=== PATIENT | female | born 1980 | race Caucasian/White ===

== ENCOUNTER 2022-07-11 08:48 | Emergency (ER) | payer OTHER, SELFPAY ==
[2022-07-11 08:54] VITALS: BP 128/72; PULSE 85; RESP 20; TEMP 36.8; O2SAT 100
--- NOTE | 2022-07-11 09:02 | ED.URI ---
HPI - URI/Sore Throat General Chief Complaint: Upper Respiratory Infection Stated Complaint: Sore Throat Time Seen by Provider: 07/11/22 09:03 History of Present Illness HPI Narrative: 42 y/o female presented for c/o sore, onset throat yesterday. Woke today with more pain with swallowing. Denies any additional symptoms. Taking ibuprofen. Endorses son diagnosed with impetigo and taking antibiotics. Related Data Allergies Allergy/AdvReac Type Severity Reaction Status Date / Time prednisone Allergy Severe Muscle Verified 07/11/22 09:04 Spasms Review of Systems Review of Systems: CONSTITUTIONAL: Denies body aches, fever, chills, or sweats. EYES: Denies visual changes, redness, or discharge. ENT: Denies rhinorrhea, congestion, or otalgia. CARDIOVASCULAR: Denies chest pain, palpitations, or edema. RESPIRATORY: Denies dyspnea. GASTROINTESTINAL: Denies abdominal pain, nausea, vomiting, or diarrhea. SKIN: Denies rash, itching, or wounds. MUSCULOSKELETAL: Denies back pain, joint pain, or myalgia. NEUROLOGIC: Denies headache Exam Narrative: GENERAL: Ill-appearing, nontoxic EYES: conjunctivae clear ENT: Mucous membranes moist. TM pearly shankar with normal light reflex bilaterally; no tragal tenderness. Oropharynx erythematous without lesions. Tonsils enlarged 3+ and erythematous without exudate. No drooling, no hoarseness, no trismus, uvula midline. No tripod positioning, hot potato voice, or soft palate swelling. NECK: Supple. No lymphadenopathy CHEST: Clear to auscultation, breath sounds equal. HEART: Regular rate and rhythm. No murmur heard. SKIN: Warm, dry, no rash. NEURO: Alert and oriented x3. Course Course Emergency Course: Patient is aware of diagnosis, understands and agrees to treatment plan. Anticipatory guidance given. Patient agrees to follow-up as directed and is aware of reasons to seek care at the emergency department. Portions of this record may have been created with voice recognition software Level of Care: Express Care Visit Vital Signs Vital signs: Vital Signs Temperature 98.2 F 07/11/22 08:54 Pulse Rate 85 07/11/22 08:54 Respiratory Rate 20 07/11/22 08:54 Blood Pressure 128/72 07/11/22 08:54 Pulse Oximetry 100 07/11/22 08:54 Oxygen Delivery Room Air 07/11/22 08:54 Temperature 98.2 F 07/11/22 08:54 Pulse Rate 85 07/11/22 08:54 Respiratory Rate 20 07/11/22 08:54 Blood Pressure 128/72 07/11/22 08:54 Pulse Oximetry 100 07/11/22 08:54 Oxygen Delivery Room Air 07/11/22 08:54 MDM - URI/Sore Throat MDM Narrative Medical decision making narrative: strep result reviewed with pt. Advise supportive treatments. Patient is appropriate for outpatient treatment and follow-up. Differential Diagnosis Differential diagnosis: Likely upper respiratory infection, viral infection and pharyngitis Lab Data Labs: Strep Screen Positive Group A Strep *(Reference Range: Negative)* Discharge Plan Discharge Clinical Impression: Strep pharyngitis Patient Disposition: Home, Self-Care Condition: Stable Instructions: Antibiotic Form, Strep Throat (ED) Additional Instructions: - Take the antibiotic as directed. Fever and sore throat typically resolve within one to three days. - Most patients can return to work after 24 hours of antibiotic therapy, provided you are fever free and otherwise well. -Eat and drink things that are easy to swallow, like soft foods, cool liquids, tea with honey, or popsicles . -Salt water gargles and/or may use topical anesthetic ( Chloraseptic spray) or lozenges to relieve dryness or throat pain -Alternate Tylenol and ibuprofen as needed for pain and fever as directed. -Frequent hand washing or hand lumber inspector is one of the best ways to prevent spread of infection. Throw away the toothbrush after 24hours of antibiotic. -Follow up with primary care provider in 2-3 d
== END 2022-07-11 09:16 | disposition home or self-care (01) ==
PROVIDERS: Emergency Provider Nurse Practitioner Family; PCP Nurse Practitioner Family
DX: J02.0 Streptococcal pharyngitis (principal)
CPT/HCPCS: 87880; 99203; G0463

== ENCOUNTER 2024-10-06 13:24 | Emergency (ER) | payer OTHER, SELFPAY ==
--- NOTE | ~2024-10-06 | XR_ITS ---
EXAMINATION: XR chest 2V 10/06/2024 14:39 INDICATION: Cough PROCEDURE: 2 view chest COMPARISON: No prior studies for comparison. FINDINGS: The lungs are clear. The cardiomediastinal silhouette is within normal limits. There are no pleural effusions. There is no pneumothorax suspected. IMPRESSION: 1: NO ACUTE CARDIOPULMONARY DISEASE. Reviewed, dictated and finalized at location B. NESS COORDINATOR
[2024-10-06 13:32] VITALS: BP 123/63; PULSE 92; RESP 20; TEMP 36.8; O2SAT 98
--- NOTE | 2024-10-06 14:18 | ED.URI ---
HPI - URI/Sore Throat General Chief Complaint: Upper Respiratory Infection Stated Complaint: Cough Time Seen by Provider: 10/06/24 14:19 Source: patient Mode of arrival: ambulatory Limitations: no limitations History of Present Illness HPI Narrative: 44-year-old female presented for complaint of a nonproductive cough for 10 days. She states the cough is worse when she is sitting. The only thing that improves it is chewing gum. It feels like a tickle down in her throat. She denies associated shortness of breath, wheezing, nausea, vomiting, diarrhea, fevers or chills. She states she had similar symptoms 10 years ago which required her to go to the emergency room, she attributes this to having taken Tessalon Perles prior to the ER visit. Also states she is allergic to prednisone. Related Data Allergies Allergy/AdvReac Type Severity Reaction Status Date / Time prednisone Allergy Severe Muscle Verified 10/06/24 13:36 Spasms Review of Systems Review of Systems: CONSTITUTIONAL: Denies body aches, fever, chills, or sweats. EYES: Denies visual changes, redness, or discharge. ENT: Denies rhinorrhea, congestion, sore throat, or otalgia. CARDIOVASCULAR: Denies chest pain, palpitations, or edema. RESPIRATORY: Reports cough, denies sob, wheezing. GASTROINTESTINAL: Denies abdominal pain, nausea, vomiting, or diarrhea. SKIN: Denies rash MUSCULOSKELETAL: Denies back pain, joint pain, or myalgia. NEUROLOGIC: Denies headache All systems reviewed & are unremarkable except as noted in HPI and below PMFSH Comments At time of signature, I have reviewed and agree with nursing past medical, surgical, social and family history unless otherwise noted. Please see nursing chart for further information. There is no relevant family history pertinent to the presenting complaint Exam Narrative: GENERAL: Well-appearing, in no acute distress. EYES: EOMI. No redness or drainage. Conjunctivae normal. ENT: Mucous membranes pink and moist. No rhinorrhea. TMs normal bilaterally. Throat normal. Uvula midline. NECK: Normal AROM. Supple. CHEST: No respiratory distress. lungs clear to all bhatia. HEART: Regular rate and rhythm. No murmur appreciated. ABDOMEN: Soft, nontender, nondistended, normal active bowel sounds. SKIN: Warm, dry, no rash. Capillary refill normal. Normal skin turgor. NEURO: Alert and oriented x3. Gait steady. PSYCH: Normal affect. Course Course Emergency Course: Patient is aware of diagnosis, understands and agrees to treatment plan. Anticipatory guidance given. Patient agrees to follow-up as directed and is aware of reasons to seek care at the emergency department. Portions of this record may have been created with voice recognition software Level of Care: Express Care Visit Vital Signs Vital signs: Vital Signs Temperature 98.3 F 10/06/24 13:32 Pulse Rate 92 10/06/24 13:32 Respiratory Rate 20 10/06/24 13:32 Blood Pressure 123/63 10/06/24 13:32 Pulse Oximetry 98 10/06/24 13:32 Oxygen Delivery Room Air 10/06/24 13:32 Temperature 98.3 F 10/06/24 13:32 Pulse Rate 92 10/06/24 13:32 Respiratory Rate 20 10/06/24 13:32 Blood Pressure 123/63 10/06/24 13:32 Pulse Oximetry 98 10/06/24 13:32 Oxygen Delivery Room Air 10/06/24 13:32 MDM - URI/Sore Throat MDM Narrative Medical decision making narrative: Discussed physical exam findings and preliminary CXR; pt will be notified if the radiologist differs. i Rx. Pt states the cough syrup helps. Cannot tolerate steroid or tessalon perles. Advised supportive measures and signs/symptoms to go to the ER. Pt is appropriate for outpt treatment and f/u. Differential Diagnosis Differential diagnosis: Likely upper respiratory infection, sinusitis, viral infection, bronchitis and other (bronchitis, asthma, GERD) Discharge Plan Discharge Clinical Impression: Bronchitis Patient Disposition: Home, Self-Care Condition: Stable Instructions: Antibiotic Form, Acute Bronchitis (ED) Additional Instructions: Take medication as directed Recommend Flonase spray and Zyrtec (or Claritin/Loly) Take Cough syrup as prescribed, it may cause drowsiness; avoid driving or take it at night time. Tylenol 1000mg every 8 hours as needed for pain Symptomatic treatment includes: rest, fluids, and increase humidity of the air at home. Follow up with your primary care provider as needed in 1 week Go to the ER for worsening symptoms or concerns Patient Language: Portuguese Prescriptions: New codeine-guaifenesin [Guaifenesin AC] 10-100 mg/5 mL liquid 10 ml PO Q8H PRN (Reason: cough) Qty: 120 0RF albuterol sulfate 90 mcg/actuation HFA aerosol inhaler 2 inh inhalation QID PRN (Reason: shortness of breath or wheezing) Qty: 8.5 0RF Follow-up/Referrals: Bhatia,Balbina Guzman APN [Primary Care Provider] - Time of Disposition: 14:58
== END 2024-10-06 15:02 | disposition home or self-care (01) ==
PROVIDERS: Emergency Provider Nurse Practitioner Family; PCP Nurse Practitioner Family
DX: J40 Bronchitis, not specified as acute or chronic (principal)
CPT/HCPCS: 71046; 99213; G0463

== ENCOUNTER 2025-07-22 12:15 | Emergency (ER) | payer OTHER, SELFPAY ==
[2025-07-22 12:19] VITALS: BP 137/88; PULSE 83; RESP 16; TEMP 36.5; O2SAT 99
--- OUTSIDE RECORDS SUMMARY | 2025-07-22 12:23 | XMS_ITS | Clinical Summary ---
Author Organization [facility] Address [address] [place] [address] Phone Care Team Providers Care Gandy Dancer Name Role Phone Unavailable Primary Care Provider Unavailabl e Allergies Active Allergy Reactions Criticality Noted Date Comments Prednisone Nausea and Vomiting Low 11/19/2007 Medications mv,Ca,min/iron/F A/guarana/caff (ONE-A-DAY WOMEN'S ACTIVE ORAL) Take by mouth. Active conjugated estrogens-medrox yPROGESTERone (Prempro) 0.45-1.5 mg Tablet Take 1 Tablet by mouth daily. 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, currently , antepartum-cleft palate 04/18/2018 Previous complicat ed by -induced hypertension, antepartum 04/18/2018 Family history of breast cancer 12/18/2017 ASCUS, neg HPV, repap in 1 year 12/10/2014 Resolved Problems Problem Noted Date Diagnosed Date Resolved Date AMA (advanced maternal age) multigravida 35+, first trimester 04/18/2018 06/15/2020 9/12, boy 07/02/2015 08/12/2015 Bilateral headache 06/14/2015 5 Acute upper respiratory infe ctions of unspecified site 11/19/2007 08/12/2015 Complete 05/07/2019 Encounters Date Type Department Care Team Description 05/26/2025 External Device Data [facility] ABSTRACTION Provider, Abstract 05/06/2025 External Device Data [facility] ABSTRACTION Provider, Abstract 05/05/2025 External Device Data [facility] ABSTRACTION Provider, Abstract from Last 3 Months Immunizations Immunization Administration Dates Next Due (ADACEL/BOOSTRIX)(10 YR UP) TDAP VACCINE, 0.5ML, IM 10/01/2019,04/26/2015 INFLUENZA VACCINE QUADRIVALENT 6 MOS UP PF IM Family History Medical History Relation Name Comments Diabetes Father Cancer Maternal Grandfather Prostat e Thyroid Disease Mother Breast Cancer Other p gr aunt distant patern al relatives Heart Disease Paternal Grandfather Cancer Paternal Grandmother Migraines Sister 2 Relation Name Status Comments Brother Alive Father Maternal Grandfather Alive Maternal Grandmother Alive Mother Alive Other p gr aunt Paternal Grandfather Paternal Grandmother Sister 1 Alive Sister 2 Social History Tobacco Use Types Packs/Day Years Used Date Smoking Tobacco: Former Cigarettes 0.3 15 0 10/29/1994 - 10/29/2009 Smokeless Tobacco: Never Tobacco Cessation:Counseling Given: Not Answered Comments:casual smoker less just a couple of cigarettes a day Alcohol Use Standard Drinks/Week Comments Not Currently 0 (1 standard drink = 0.6 oz pur e alcohol) Comments No Sex and Gender Information Value Date Recorded Sex Assigned at Not on file Legal Sex Female 4:05 AM WEB MASTER Gender Identity Not on file Sexual Orientation Not on file Occupation Industry Job Start Date Job End Date Not on file Not on file Not on file Not on file Last Filed Vital Signs Vital Sign Reading Time Taken Comments Blood Pressure 134/92 12/10/2023 3:01 PM WEB MASTER Pulse 79 12/05/2019 5:00 PM WEB MASTER Temperature 36.6 C (97.9 F) 12/07/2019 8:15 AM WEB MASTER Respiratory Rate 16 12/07/2019 8:15 AM WEB MASTER Oxygen Saturation 100% 12/05/2019 4:15 AM WEB MASTER Inhaled Oxygen Concentration - - Weight 107.5 kg (237 lb) 12/10/2023 3:01 PM WEB MASTER Height 160 cm (5' 3) 12/10/2023 3:01 PM WEB MASTER Body Mass Index 41.98 12/10/2023 3:01 PM WEB MASTER Plan of Treatment Health Maintenance Due Date Last Done Comments HEPATITIS B VACCINES (1 of 3 - 19+ 3-dose series) 2001 HPV VACCINES (1 - 3-dose SCD M series) 2009 Pre-Diabetes and Diabetes Screening 09/26/2022 09/26/2019, 09/26/2019, 09/26/2019, Additional history exists CERVICAL CANCER SCREENING 11/07/2024 PAP SMEAR 11/07/2024 11/07/2023, 08/02/2020, 01/02/2019, Additional history exists BREAST CANCER SCREENING 05/15/2025 05/15/2024, 12/20 INFLUENZA VACCINE (#1) 2025 07/22/2019 HPV/Cotest (21-29) 11/07/2028 11/07/2023, 0 06/15/2020, 01/02/2019, Additional history exists HPV/Cotest (30-65) 11/07/2028 11/07/2023, 0 06/15/2020, 01/02/2019, Additional history exists DTAP/TDAP/TD VACCINES (3 - T d or Tdap) 10/01/2029 10/01/2019, 04/26/2015 Procedures Procedure Name Priority Date/Time Associated Diagnosis Comments MAMMO 3D JAJA SCREEN BILAT W OR WO CAD Routine 05/15/2024 4:02 PM CDT Breast cancer screening by mammogram CERV/VAG CYTO SCREEN PAP W/HPV Routine 11/07/2023 2:38 PM WEB MASTER Well woman exam with routine gynecological exam Screening for cervical cancer Special screening examination for human papillomavirus (HPV) GLUCOSE TOLERANCE, FASTING Routine 09/26/2019 9:19 AM WEB MASTER Abnormal glucose tolerance test (GTT) during , antepartum from Last 3 Months or Most Recently Relevant to Health Maintenance Results * MAMMO 3D JAJA SCREEN BILAT W OR WO CAD (05/15/2024 4:02 PM CDT) Anatomical Region Laterality Modality Breast Bilateral Mammography 05/15/2024 4:03 PM CDT Impressions 05/16/2024 8:44 AM CDT IMPRESSION: No suspicious findings to suggest malignancy in either breast. Annual mammography is recommended. OVERALL FINAL ASSESSMENT: BI-RADS CATEGORY 1 - Negative. DICTATION LOCATION: [facility] Narrative 05/16/2024 8:44 AM CDT BILATERAL SCREENING DIGITAL MAMMOGRAM WITH 3D TOMOSYNTHESIS AND CAD DATE: 05/15/2024 4:02 PM HISTORY: Routine screening. TECHNIQUE: Full-field digital craniocaudal and mediolateral oblique projections of both breasts were obtained. Low-dose full-field digital breast tomosynthesis examination was performed with 2D and 3D acquisitions. Examination is read in conjunction with computer aided detection. COMPARISON: 12/20/2017 BREAST COMPOSITION: There are scattered areas of fibroglandular density. FINDINGS: No suspicious mass, suspicious microcalcifications, or architectural distortion is identified in either breast. Computer aided detection was used in the interpretation of this examination. Procedure Note Corinna Hensley MD - 05/16/2024 BILATERAL SCREENING DIGITAL MAMMOGRAM WITH 3D TOMOSYNTHESIS AND CAD DATE: 05/15/2024 4:02 PM HISTORY: Routine screening. TECHNIQUE: Full-field digital craniocaudal and mediolateral oblique projections of both breasts were obtained. Low-dose full-field digital breast tomosynthesis examination was performed with 2D and 3D acquisitions. Examination is read in conjunction with computer aided detection. COMPARISON: 12/20/2017 BREAST COMPOSITION: There are scattered areas of fibroglandular density. FINDINGS: No suspicious mass, suspicious microcalcifications, or architectural distortion is identified in either breast. Computer aided detection was used in the interpretation of this examination. IMPRESSION: No suspicious findings to suggest malignancy in either breast. Annual mammography is recommended. OVERALL FINAL ASSESSMENT: BI-RADS CATEGORY 1 - Negative. DICTATION LOCATION: [facility] Jaimie Santiago MD MAMMO ORDERABLES Final Re sult * (ABNORMAL) CERV/VAG CYTO SCREEN PAP W/HPV (11/07/2023 2:38 PM WEB MASTER) CLINICAL INFORMATION [facility] [place] Comment:None given LAST MENSTRUAL PERIOD [facility] [place] Comment:NONE GIVEN PREV PAP: [facility] [place] Comment:NIL 06/15/2020 PREV BX: [facility] [place] Comment:NONE GIVEN SOURCE [facility] Comment:Endocervix ADEQUACY: [facility] [place] Comment: Satisfactory for evaluation. Endocervical/transformation zone component present. GENERAL CATEGORIZATION: (A) [facility] [place] Comment:Cytology Results: Ep ithelial Cell Abnormality PAP INTERP (A) [facility] [place] Comment: Atypical Squamous Cells of Undetermined Significance (ASC-US) CYTOLOGY INFECTION [facility] [place] Comment: Shift in vaginal marybeth suggestive of bacterial vaginosis. COMMENT (PAP TEST) [facility] [place] Comment: This Pap test has been evaluated with computer assisted technology. Suggest clinical correlation and follow-up as clinically appropriate STEEL LAYOUT WORKER: Lyle zheng [employer] Communications[employer]ico [place] Comment: PCM, CT(ASCP) CT Screening Location: [facility] [address] [place] [address] PATHOLOGIST [facility] [place] Comment: Aman Vences M.D., Board Certified in Anatomic Pathology and Cytopathology. (electronic signature) EXPLANATORY NOTE [facility] Comment: EXPLANATORY NOTE: The Pap is a screening test for cervical cancer. It is not a diagnostic test and is subject to false negative and false positive results. It is most reliable when a satisfactory sample, regularly obtained, is submitted with relevant clinical findings and history, and when the Pap result is evaluated along with historic and current clinical information. HPV E6/E7 Not Detected Not Detected [facility] Comment: Methodology: Farm Management Agent-Mediated Amplification This assay detects E6/E7 viral messenger RNA (mRNA) from 14 high-risk HPV types (16,18,31,33,35,39,45,51,52,56,58,59,66,68). Cervical sources are required for HPV testing. If a vaginal source from a patient who has had a total hysterectomy with removal of cervix was submitted, please contact the testing laboratory for alternative testing options. For additional information, please refer to http://education.[employer]/faq/WXU162i8 (This link if provided for information/ educational purposes only.) Test Performed at: [facility] [address] [place] [address] Kelly Muniz MD Genital SWAB OF ENDOCERVIX / Unknown 11/07/2023 2:38 PM WEB MASTER 11/08/2023 12:03 AM WEB MASTER Jaimie Santiago MD PATHOLOGY/CYTOLOGY ORDERA BLES Final Result [facility] [phone] [facility] [address] [place] [address] * GLUCOSE TOLERANCE, FASTING (09/26/2019 9:19 AM WEB MASTER) GLUCOSE FASTING 80 74 - 99 mg/dL 09/26/2019 10:40 AM WEB MASTER [facility] Blood Venipuncture / Unknown 09/26/2019 9:19 AM WEB MASTER 09/26/2019 9:45 AM WEB MASTER Jaimie Santiago MD CHEMISTRY ORDERABLES [place] l Result Performing Organization Address City/[facility]/ZIP Co de Phone Number [facility] CLIA# [id number] [address] [place] [address] from Last 3 Months or Most Recently Relevant to [place] [address] RX [employer] RX Member Subscriber Plan / Payer (Ef fective for All Dates) Name:America Richardson Relation to Subscriber:Spouse Name:America Richardson Date of :1982 (Work) Payer ID:Not on file Type:RX LDI Address: [place]N [place] RX [employer] PLANS (INTERNAL) [facility] Internal Plans [employer] HMO Advance Directives For more information, please contact: [phone] * Full Code (Latest Code Status on File) Date Activated Date Inactivated Comments 12/05/2019 12:28 PM 12/07/2019 2:49 PM * Full Code Date Activated Date Inactivated Comments 12/04/2019 3:32 PM 12/05/2019 12:28 PM * Full Code Date Activated Date Inactivated Comments 04/29/2018 9:35 AM 04/29/2018 1:31 PM * Full Code Date Activated Date Inactivated Comments 07/03/2015 7:26 PM 07/05/2015 3:49 PM * Full Code Date Activated Date Inactivated Comments 07/02/2015 10:35 PM 07/03/2015 7:26 PM
--- OUTSIDE RECORDS SUMMARY | 2025-07-22 12:23 | XMS_ITS | Clinical Summary ---
Author Organization [facility] Address [address] [place] [address] Care Team Providers Care Dual Rate Dealer Name Role Phone Balbina Trujillo Eugenie BUCIO Primary Care Provider [phone] Allergies Active Allergy Reactions Criticality Noted Date Comments Prednisone Unknown 06/03/2018 Medications prenat vit 82-[id number]-om 3,6 35-5-1.2-400 mg capsule Take by mouth daily. Active naproxen (NAPROSYN) 500 mg tabletIndication s:Pain Take 1 tablet (500 mg total) by mouth 2 (two) times a day with meals. 20 tablet 06/03/2018 Active ibuprofen (ADVIL,MOTRIN) 800 mg tablet Take 1 tablet (800 mg total) by mouth every 8 (eight) hours as needed for pain for up to 30 doses 30 tablet 03/23/2023 Active Social History Tobacco Use Types Packs/Day Years Used Date Smoking Tobacco: Never Smokeless Tobacco: Never Personal Safety Answer Date Recorded Getting School Help Needed Not on file 05/01 Comments No Sex and Gender Information Value Date Recorded Sex Assigned at Not on file Legal Sex Female 1:19 PM PRODUCTION SCHEDULER Gender Identity Not on file Sexual Orientation Not on file Obstetrics History Last Filed Vital Signs Vital Sign Reading Time Taken Comments Blood Pressure 122/87 03/23/2023 10:58 PM CDT Pulse 77 03/23/2023 10:58 PM CDT Temperature 37.1 C (98.8 F) 03/23/2023 10:58 PM CDT Respiratory Rate 16 03/23/2023 10:58 PM CDT Oxygen Saturation 100% 03/23/2023 10:58 PM CDT Inhaled Oxygen Concentration - - Weight 99.8 kg (220 lb) 03/23/2023 4:39 PM CDT Height 160 cm (5' 3) 03/23/2023 4:39 PM CDT Body Mass Index 38.97 03/23/2023 4:39 PM CDT Plan of Treatment Health Maintenance Due Date Last Done Comments Breast Cancer Screening-Mammogram 1982 Cervical Cancer Screening 1982 Depression Screening 1982 Hepatitis C Screening 1982 Varicella Vaccines (1 of 2 - 13+ 2-dose series) 1995 Hepatitis B Screening 2000 Regular Well Visit/Exam 18-64 2000 HPV Vaccines (1 - 3-dose SCD M series) 2009 Covid-19 Vaccine (2 - 2024-2 6 season) 2025 12/26/2020 Influenza Vaccine (#1) 2025 07/22/2019 DTaP/Tdap/Td Vaccine (3 - Td or Tdap) 10/01/2029 10/01/2019, 04/26/2015 Pneumococcal vaccine <65 Aged Out No longer eligible based on patient's age to complete this topic Insurance [facility] [place] [address] [id number] [employer]OL[employer] Care Teams Dual Rate Dealer Relationship Specialty Start Date End Date Balbina Trujillo NP [address] [place] [address] PCP - General Nurse Practitioner 03/23/23
--- OUTSIDE RECORDS SUMMARY | 2025-07-22 12:23 | XMS_ITS | Encounter Summary ---
Author Organization [facility] Address [address] [place] [address] Care Team Providers Care Chief Innovation Officer Name Role Phone Unavailable Primary Care Provider Unavailabl e Encounter Details Date Type Department Care Team (Late st Contact Info) Description 11/19/2007 Outpatient Historical [facility] [address] [place] [address] Tereso Monzon MD [address] [facility] [address] [place] [address] Social History Tobacco Use Types Packs/Day Years Used Date Smoking Tobacco: Never Assessed Comments Unknown Sex and Gender Information Value Date Recorded Sex Assigned at Not on file Legal Sex Female 4:05 AM MANDARIN TEACHER Gender Identity Not on file Sexual Orientation Not on file documented as of this encounter Last Filed Vital Signs Vital Sign Reading Time Taken Comments Blood Pressure 112/80 11/19/2007 12:00 PM MANDARIN TEACHER Pulse - - Temperature 36.8 C (98.2 F) 11/19/2007 12:00 PM MANDARIN TEACHER Respiratory Rate - - Oxygen Saturation - - Inhaled Oxygen Concentration - - Weight 78.5 kg (173 lb) 11/19/2007 12:00 PM MANDARIN TEACHER Height - - Body Mass Index - - documented in this encounter Plan of Treatment Not on file documented as of this encounter Visit Diagnoses Not on filedocumented in this encounter
--- OUTSIDE RECORDS SUMMARY | 2025-07-22 12:23 | XMS_ITS | Encounter Summary ---
Author Organization [facility] Address [address] [place] [address] Care Team Providers Care Assistant Community Manager Name Role Phone Unavailable Primary Care Provider Unavailabl e Encounter Details Date Type Department Care Team (Late st Contact Info) Description 11/19/2007 Orders Only [facility] Family Medicine [address] [place] [address] Tereso Monzon MD [address] [facility] [address] [place] [address] Social History Tobacco Use Types Packs/Day Years Used Date Smoking Tobacco: Never Assessed Comments Unknown Sex and Gender Information Value Date Recorded Sex Assigned at Not on file 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 BLOOD PRESSURE: 112/80. Right Arm Sitting TEMPERATURE: 98.2??f. Oral ALLERGIES: Allergies are as listed. TOBACCO USE: Patient does not currently use tobacco. CHIEF COMPLAINT Patient complains of cough. HISTORY: has had respiratory illness since 10/29. cough, congestion. has been trying to see doctor who hasn't been able to see her. thought she was better, put on abx, decongestant, benzonatate. last pill this morning. was feeling a lot better. Not really had a fever, but was cold when she went to bed. but had a lot of sweats. ROS: GENERAL: FEELS FATIGUED, HAS CHILLS, OCCASIONALLY NOTES SPONTANEOUS SWEATS. ENT: See HISTORY OF PRESENT ILLNESS. CARDIAC: No chest pain, palpitations, orthopnea, dyspnea on exertion, or paroxysmal nocturnal dyspnea. RESPIRATORY: HAS A COUGH. Patient's history reviewed; no changes. PHYSICAL EXAMINATION: CONSTITUTIONAL: GENERAL APPEARANCE: Healthy appearing patient in no distress. EARS, NOSE, MOUTH AND THROAT: EARS: Tympanic membranes shiny without retraction. Canals unremarkable. Hearing grossly normal. NOSE (AND SINUS): CLEAR NASAL DISCHARGE NOTED BILATERALLY. ORAL: Inspection of gums, lips, palate, and teeth normal. No scars, lesions, or masses. Oral mucosaunremarkable with non-inflamed posterior pharynx. NECK/THYROID: Trachea midline. No thyroid enlargement, tenderness, or mass. No supraclavicular or cervical adenopathy. RESPIRATORY: Clear to auscultation and percussion. Normal respiratory effort. CARDIOVASCULAR: CARDIAC: Regular rhythm. No murmurs, rubs, or gallops. ASSESSMENT/PLAN: 465.9-UPPER RESPIRATORY INFECTION ? influenza, but not documented fever. decongestants MEDICATIONS: EXTENDRYL SR ORAL CAPSULE 12 HR 8-20-2.5 MG, 1 po bid prn, 30 Dispensed, 15 Duration/Days Supply, status: NEW PRESCRIPTION, 11/19/2007. 5::45 - spoke with mom. pt has chills and cough called in [facility] Electronically Signed by: Tereso Monzon MD on Monday, November 19, 2007 documented in this encounter Plan of Treatment Not on file documented as of this encounter Visit Diagnoses Not on filedocumented in this encounter
--- OUTSIDE RECORDS SUMMARY | 2025-07-22 12:23 | XMS_ITS | Encounter Summary ---
Author Organization [employer] Address 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
--- OUTSIDE RECORDS SUMMARY | 2025-07-22 12:23 | XMS_ITS | Encounter Summary ---
Author Organization [employer] Address 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
[2025-07-22] MEDS: SODIUM CHLORIDE 0.9% IV 1,000 ML 999 ML IV CONT (12:56)
[2025-07-22 13:05] LABS: Hematocrit 45.0 % (37.0-47.0); Hemoglobin 14.9 g/dL (12.0-15.0); Immature Granulocyte Percent A 0.5 % (0-0.5); Lymphocytes Absolute Auto 3.42 K/mm3 (0.9-3.2); Mean Corpuscular HGB Conc 33.1 g/dl (32-36); Mean Corpuscular Hemoglobin 29.0 pg (26-34); Mean Corpuscular Volume 87.7 fl (80-100); Nucleated Red Blood Cells Absolute Auto 0.000 K/mm3 (0.0-0.012); Nucleated Red Blood Cells Perc 0.0 % (0.0-0.2); Platelet Count Result 333 k/mm3 (150-375); Red Blood Count 5.13 M/mm3 (4.2-5.4); White Blood Count 9.5 K/mm3 (4.5-10.0)
--- NOTE | 2025-07-22 13:07 | PC.NURSE ---
Per Dr. Parker, pt was placed in a pad at 1240.
--- OUTSIDE RECORDS SUMMARY | 2025-07-22 13:07 | XMS_ITS | Encounter Summary ---
Author Organization [facility] Address 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
--- OUTSIDE RECORDS SUMMARY | 2025-07-22 13:07 | XMS_ITS | Encounter Summary ---
Author Organization [facility] Address 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
--- OUTSIDE RECORDS SUMMARY | 2025-07-22 13:07 | XMS_ITS | Encounter Summary ---
Author Organization [employer] Address [address] [place] [address] Care Team Providers Care Desolderer Name Role Phone Unavailable Primary Care Provider Unavailabl e Encounter Details Date Type Department Care Team (Late st Contact Info) Description 10/30/2007 Outpatient Historical HIS 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
--- OUTSIDE RECORDS SUMMARY | 2025-07-22 13:07 | XMS_ITS | Clinical Summary ---
Author Organization [facility] Address [address] [place] [address] Phone Care Team Providers Care Wallpaper Hanger Name Role Phone Unavailable Primary Care Provider [...] on file Legal Sex Female 4:05 AM LSW Gender Identity Not on file Sexual Orientation Not on file Occupation Industry Job Start Date Job End Date Not on file Not on file Not on file Not on file Last Filed Vital Signs Vital Sign Reading Time Taken Comments Blood Pressure 134/92 12/10/2023 3:01 PM LSW Pulse 79 12/05/2019 5:00 PM LSW Temperature 36.6 C (97.9 F) 12/07/2019 8:15 AM LSW Respiratory Rate 16 12/07/2019 8:15 AM LSW Oxygen Saturation 100% 12/05/2019 4:15 AM LSW Inhaled Oxygen Concentration - - Weight 107.5 kg (237 lb) 12/10/2023 3:01 PM LSW Height 160 cm (5' 3) 12/10/2023 3:01 PM LSW Body Mass Index 41.98 12/10/2023 3:01 PM LSW Plan of Treatment Health Maintenance Due Date [...] SCREEN PAP W/HPV Routine 11/07/2023 2:38 PM LSW Well woman exam with routine gynecological exam Screening for cervical cancer Special screening examination for human papillomavirus (HPV) GLUCOSE TOLERANCE, FASTING Routine 09/26/2019 9:19 AM LSW Abnormal glucose tolerance test (GTT) during , [...] CYTO SCREEN PAP W/HPV (11/07/2023 2:38 PM LSW) CLINICAL INFORMATION [facility] Comment:None given LAST MENSTRUAL PERIOD [facility] Comment:NONE GIVEN PREV PAP: [facility] Comment:NIL 06/15/2020 PREV BX: [facility] Comment:NONE GIVEN SOURCE [employer] Comment:Endocervix ADEQUACY: [facility] Comment: Satisfactory for evaluation. Endocervical/transformation zone component present. GENERAL CATEGORIZATION: (A) [facility] Comment:Cytology Results: Ep ithelial Cell Abnormality PAP INTERP (A) [facility] Comment: Atypical Squamous Cells of Undetermined Significance (ASC-US) CYTOLOGY INFECTION [facility] Comment: Shift in vaginal marybeth suggestive of bacterial vaginosis. COMMENT (PAP TEST) [facility] Comment: This Pap test has been evaluated with computer assisted technology. Suggest clinical correlation and follow-up as clinically appropriate HEAD ATHLETIC TRAINER: Lyle zheng [employer] [facility] Comment: PCM, CT(ASCP) CT Screening Location: [place] [address] [place] [address] PATHOLOGIST [facility] Comment: Aman Vences M.D., Board Certified in Anatomic Pathology and Cytopathology. (electronic signature) EXPLANATORY NOTE [employer] Comment: EXPLANATORY NOTE: The Pap is a [...] information. HPV E6/E7 Not Detected Not Detected [employer] Comment: Methodology: Regulatory Leader-Mediated Amplification This assay detects E6/E7 viral messenger RNA (mRNA) from 14 high-risk HPV types (16,18,31,33,35,39,45,51,52,56,58,59,66,68). Cervical sources are required for HPV testing. If a vaginal source from a patient who has had a total hysterectomy with removal of cervix was submitted, please contact the testing laboratory for alternative testing options. For additional information, please refer to http://education.[employer]/faq/OKQ586a6 (This link if provided for information/ educational purposes only.) Test Performed at: [facility] [address] [place] [address] Kelly Muniz MD Genital SWAB OF ENDOCERVIX / Unknown 11/07/2023 2:38 PM LSW 11/08/2023 12:03 AM LSW Jaimie Santiago MD PATHOLOGY/CYTOLOGY ORDERA BLES Final Result [facility] [phone] [facility] [address] [place] [address] * GLUCOSE TOLERANCE, FASTING (09/26/2019 9:19 AM LSW) GLUCOSE FASTING 80 74 - 99 mg/dL 09/26/2019 10:40 AM LSW [facility] Blood Venipuncture / Unknown 09/26/2019 9:19 AM LSW 09/26/2019 9:45 AM LSW Jaimie Santiago MD CHEMISTRY ORDERABLES Keyona l Result Performing Organization Address City/[facility]/ZIP Co de Phone Number [facility] CLIA# [id number] [address] [place] [address] from Last 3 Months or Most Recently Relevant to [place] [address] RX [employer] RX Member Subscriber Plan / Payer (Ef fective for All Dates) Name:America Richardson Relation to Subscriber:Spouse Name:America Richardson Date of :1982 (Work) Payer ID:Not on file Type:RX LDI Address: [address] RX LEDEZMA PLANS (INTERNAL) [facility] Internal Plans C[employer] HMO Advance Directives For more information, please contact: [phone] * Full Code (Latest Code Status on [...]
--- OUTSIDE RECORDS SUMMARY | 2025-07-22 13:07 | XMS_ITS | Clinical Summary ---
Author Organization [facility] Address [address] [place] [address] Care Team Providers Care Compression Molding Machine Setter Name Role Phone Balbina Trujillo Eugenie BUCIO Primary Care Provider [phone] Allergies Active Allergy Reactions Criticality Noted Date Comments Prednisone Unknown 06/03/2018 Medications prenat vit [id number] 3,6 35-5-1.2-400 mg capsule Take by mouth [...] on file Legal Sex Female 1:19 PM LATIN DANCER Gender Identity Not on file Sexual Orientation [...] patient's age to complete this topic Insurance [facility] [place] [address] BOL[employer] Care Teams Compression Molding Machine Setter Relationship Specialty Start Date End Date Balbina Trujillo NP [address] [place] [address] PCP - General Nurse Practitioner 03/23/23
--- OUTSIDE RECORDS SUMMARY | 2025-07-22 13:07 | XMS_ITS | Encounter Summary ---
Author Organization [facility] Address [address] [place] [address] Care Team Providers Care Factory Laborer Name Role Phone Unavailable Primary Care Provider Unavailabl e Encounter Details Date Type Department Care Team (Late st Contact Info) Description 11/19/2007 Outpatient Historical [facility] Family Medicine [address] [place] [address] Tereso Monzon MD [address] [facility] [address] [place] [address] Social History Tobacco Use Types Packs/Day Years Used Date Smoking Tobacco: Never Assessed Comments Unknown Sex and Gender Information Value Date Recorded Sex Assigned at Not on file 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 Gender Identity Not on file Sexual Orientation Not on file documented as of this encounter Last Filed Vital Signs Vital Sign Reading Time Taken Comments Blood Pressure 112/80 11/19/2007 12:00 PM INFANT AND TODDLER TEACHER Pulse - - Temperature 36.8 C (98.2 F) 11/19/2007 12:00 PM INFANT AND TODDLER TEACHER Respiratory Rate - - Oxygen Saturation - - Inhaled Oxygen Concentration - - Weight 78.5 kg (173 lb) 11/19/2007 12:00 PM INFANT AND TODDLER TEACHER Height - - Body Mass Index - - documented in this encounter Plan of Treatment Not on file documented as of this encounter Visit Diagnoses Not on filedocumented in this encounter
[2025-07-22 13:11] LABS: Add Urine Microscopic? YES; Appearance Urine Clear (Clear); Glucose Urine UA Negative (Negative); Leukocyte Esterase Ur Negative LEU/UL (Negative); Nitrate Urine Negative (Negative); Non Pathogenic Casts 0-2; Specific Grav Ur 1.033 (1.001-1.035)
[2025-07-22 13:12] LABS: Pregnancy On Board Control Positive
[2025-07-22 13:18] LABS: INR 1.0; Partial Thromboplastin Time 26.0 Seconds (22.3-36.8); Prothrombin Time 13.1 Seconds (11.1-14.7)
[2025-07-22 13:21] LABS: Alanine Aminotransferase 20 U/L (6-35); Albumin Level 4.4 g/dL (3.5-5.1); Alkaline Phosphatase 68 U/L (38-126); Anion Gap 10 mmol/L (4-12); Aspartate Amino Transferase 27 U/L (14-36); Bilirubin,Total 0.7 mg/dL (0.2-1.3); Blood Urea Nitrogen 18 mg/dL (7-17); Calcium 8.9 mg/dL (8.4-10.2); Carbon Dioxide 24 mmol/L (22-30); Chloride 105 mmol/L (98-107); Estimated CRCL calculation 97 ml/min; Estimated Glomerular Filt Rate > 60; Glucose 80 mg/dL (65-110); Potassium 4.0 mmol/L (3.4-5.0); Sodium 139 mmol/L (137-145); Total Protein 8.1 g/dL (6.3-8.2)
[2025-07-22 13:34] LABS: Beta HCG Quantitative < 2.39 mIU/ML
--- NOTE | 2025-07-22 13:49 | ED_ITS ---
HPI - General Adult General Chief complaint: PRINT DESIGNER Stated complaint: Abnormal menses bleeding x 10 days Time Seen by Provider: 07/22/25 12:29 History of Present Illness HPI narrative: This is a 45-year-old female on estrogen and progesterone replacement presenting for abnormal uterine bleeding. Patient started having menstrual bleeding 10 days ago. First was light but has gotten heavier over the last 3 days. Typically her periods last 5 days. She is sexually active with her . He has had a vasectomy and she does not think she is . She does not have any concerns about STDs and has no vaginal discharge or irritation. She does not have any urinary symptoms. She has not called her OBGYN. She has taken her progesterone pills from her hormone replacement without cessation of her menses. Related Data Allergies Allergy/AdvReac Type Severity Reaction Status Date / Time prednisone Allergy Severe Muscle Verified 07/22/25 12:16 Spasms Exam 2 Narrative: APPEARANCE: No apparent distress. Head: atraumatic. EYES: EOMI, NOSE: Atraumatic NECK: Trachea midline RESPIRATORY: No increased rate of breathing CARDIOVASCULAR: RRR, no peripheral edema ABDOMINAL: Non-distended soft nontender Pelvic exam: Normal external genitalia, some dark red blood in the vaginal vault, cervical os is closed MUSCULOSKELETAl: No obvious deformities NEURO: Alert. Moving 4/4 extremities SKIN:: Warm, dry. Normal color PSYCHIATRIC: Normal affect Course Vital Signs Vital signs: Vital Signs Temperature 97.7 F 07/22/25 12:19 Pulse Rate 83 07/22/25 12:19 Respiratory Rate 16 07/22/25 12:19 Blood Pressure 137/88 07/22/25 12:19 Pulse Oximetry 99 07/22/25 12:19 Oxygen Delivery Room Air 07/22/25 12:19 Temperature 97.7 F 07/22/25 12:19 Pulse Rate 83 07/22/25 12:19 Respiratory Rate 16 07/22/25 12:19 Blood Pressure 137/88 07/22/25 12:19 Pulse Oximetry 99 07/22/25 12:19 Oxygen Delivery Room Air 07/22/25 12:19 Medical Decision Making MDM Narrative Medical decision making narrative: -Course: 45-year-old female on hormone replacement therapy for early menopause presenting for dysfunctional uterine bleeding. Abdominal exam is benign. Vital signs are stable. Hemoglobin is 14.9. Pelvic exam showed dark blood in the vaginal vault but no other significant findings. Patient was informed of the results instructed to follow-up with her OBGYN for further management. Given return precautions for significant bleeding. -DDX includes but is not limited to: Dysfunctional uterine bleeding, , or ectopic -Co-morbidities complicating care: Hormone replacement Vital Signs Vital Signs: Vital Signs Temperature 97.7 F 07/22/25 12:19 Pulse Rate 83 07/22/25 12:19 Respiratory Rate 16 07/22/25 12:19 Blood Pressure 137/88 07/22/25 12:19 Pulse Oximetry 99 07/22/25 12:19 Oxygen Delivery Room Air 07/22/25 12:19 Temperature 97.7 F 07/22/25 12:19 Pulse Rate 83 07/22/25 12:19 Respiratory Rate 16 07/22/25 12:19 Blood Pressure 137/88 07/22/25 12:19 Pulse Oximetry 99 07/22/25 12:19 Oxygen Delivery Room Air 07/22/25 12:19 Lab Data 07/22/25 12:55 07/22/25 12:55 Labs: Lab Results 07/22/25 07/22/25 Range/Units 12:54 12:55 WBC 9.5 (4.5-10.0) K/mm3 RBC 5.13 (4.2-5.4) M/mm3 Hgb 14.9 (12.0-15.0) g/dL Hct 45.0 (37.0-47.0) % MCV 87.7 (80-100) fl MCH 29.0 (26-34) pg MCHC 33.1 (32-36) g/dl RDW 12.3 (11.5-14.5) % Plt Count 333 (150-375) k/mm3 MPV 9.4 (7.4-10.4) fl Immature Gran % (Auto) 0.5 (0-0.5) % Neut % (Auto) 53.4 (45.5-73.1) % Lymph % (Auto) 36.0 (18.3-44.2) % [place] % (Auto) 7.7 (2.6-8.5) % Eos % (Auto) 1.6 (0-4.4) % Baso % (Auto) 0.8 (0.2-1.2) % Lymph # (Auto) 3.42 H (0.9-3.2) K/mm3 Inyo # (Auto) 0.7 H (0.1-0.6) K/mm3 Eos # (Auto) 0.2 (0-0.3) K/mm3 Baso # (Auto) 0.1 (0.0-0.1) K/mm3 Abs Immat Gran (auto) 0.05 H (0.00-0.031) K/mm3 Absolute Neuts (auto) 5.1 (1.3-6.7) K/mm3 Absolute Nucleated RBC 0.000 (0.0-0.012) K/mm3 Nucleated RBC % 0.0 (0.0-0.2) % PT 13.1 (11.1-14.7) Seconds INR 1.0 APTT 26.0 (22.3-36.8) Seconds Sodium 139 (137-145) mmol/L Potassium 4.0 (3.4-5.0) mmol/L Chloride 105 (98-107) mmol/L Carbon Dioxide 24 (22-30) mmol/L Anion Gap 10 (4-12) mmol/L BUN 18 H (7-17) mg/dL Creatinine 0.68 L (0.7-1.0) mg/dL Estim Creat Clear Calc 97 ml/min Estimated GFR > 60 (59 - ) Glucose 80 (65-110) mg/dL Calcium 8.9 (8.4-10.2) mg/dL Total Bilirubin 0.7 (0.2-1.3) mg/dL AST 27 (14-36) U/L ALT 20 (6-35) U/L Alkaline Phosphatase 68 (38-126) U/L Total Protein 8.1 (6.3-8.2) g/dL Albumin 4.4 (3.5-5.1) g/dL Beta HCG, Quant < 2.39 mIU/ML Urine Color Yellow (Yellow) Urine Appearance Clear (Clear) Urine pH 6.0 (5.0-9.0) Ur Specific [place] 1.033 (1.001-1.035) Urine Protein Negative (Negative) mg/dL Urine Glucose (UA) Negative (Negative) mg/dL Urine Ketones Trace H (Negative) mg/dL Ur Blood (Man) 2+ H (Negative) Urine Nitrate Negative (Negative) Urine Bilirubin Negative (Negative) Urine Urobilinogen 1.0 (<2.0) mg/dL Leukocyte Esterase Rfl Negative (Negative) AVERY/UL Urine RBC 3-5 H (0-2) /hpf Urine WBC 0-5 (0-3) /hpf Ur Squamous Epith Cells None seen (Few) /hpf Urine Bacteria None seen /hpf Urine Casts 0-2 Urine Test Negative Blood Type O Positive Antibody Screen Pending Discharge Plan Discharge Clinical Impression: Bleeding, uterine, dysfunctional Patient Disposition: Home Condition: Stable Instructions: Antibiotic Form, Abnormal (Dysfunctional) Uterine Bleeding (ED) Additional Instructions: Please follow-up with your OBGYN in the next 3-5 days. If your bleeding through more than 1 menstrual pad per hour(side to side and front to back) for 2 hours in a row please return to ED for re-evaluation. If you develop dizziness lightheadedness or feel like you are going to faint you should return as well. Patient Language: American Prescriptions: No Action codeine-guaifenesin [Guaifenesin AC] 10-100 mg/5 mL liquid 10 ml PO Q8H PRN (Reason: cough) Qty: 120 0RF albuterol sulfate 90 mcg/actuation HFA aerosol inhaler 2 inh inhalation QID PRN (Reason: shortness of breath or wheezing) Qty: 8.5 0RF Follow-up/Referrals: Ronnie,Balbina Guzman APN [Primary Care Provider, Unknown]
[2025-07-22 14:24] VITALS: BP 132/74; PULSE 86; RESP 16; O2SAT 98
== END 2025-07-22 14:25 | disposition home or self-care (01) ==
PROVIDERS: Emergency Provider Emergency Medicine; PCP Nurse Practitioner Family
DX: N93.8 Other specified abnormal uterine and vaginal bleeding (principal); Z79.890 Hormone replacement therapy
CPT/HCPCS: 36415; 80053; 81001; 81025; 84702; 85025; 85610; 85730; 86850; 86900; 86901; 96360; 99283; J7030